=== PATIENT | female | born 1975 | race Caucasian/White ===

== ENCOUNTER 2017-08-26 13:49 | Emergency (ER) | payer MEDICAID ==
--- NOTE | 2017-08-26 15:47 | ED Physician Chart ---
ED Chief Complaint/HPI - Patient Information Date Seen:: 08/26/17 Time Seen:: 15:42 Chief Complaint:: Abdominal pain History of Present Illness:: 41 yo female had epigastric abdominal pain for 3 days worsening for 1 day, no N/ V, diarrhea or radiation. Bending forward and cough would worsen the pain. The pain was constant, 7/10, no fever. Patient had appendectomy before. She noticed abdominal distention today. She had BM this morning. Allergies:: Allergies Allergy/AdvReac Type Severity Reaction Status Date / Time azithromycin Allergy Verified 10/02/15 16:29 Vitals:: Vital Signs - 8 hr 08/26/17 15:00 Temp 98.4 F HR 82 RR 20 BP 111/67 ED Review of Systems - Review of Systems General/Constitutional: No fever Skin: No bruising Head: No headache Eyes: No pain ENT: No nasal drainage Neck: No neck pain Cardio Vascular: No chest pain Pulmonary: No SOB GI: No nausea, No vomiting, No diarrhea, Pain, Constipation Musculoskeletal: No bone or joint pain Psychiatric: No prior psych history Neurological: No focal symptoms ED Past Medical History - Past Medical History Past Medical History: Asthma/COPD Social History: Smoker, Alcohol, Illicit Drug Use (marijuana) Surgical History: Appendectomy, other (tubal ligation) Family Medical History - Family Member Mother History Unknown: Yes Ethnicity: Living Status: Still Living Hx Family Cancer: No Hx Family Coronary Artery Disease: No Hx Family Congestive Heart Failure: No Hx Family Hypertension: No Hx Family Stroke: No Hx Family Diabetes: No Hx Family Seizures: No Hx Family Dementia: No Hx Family AIDS: No Hx Family HIV: No Hx Family COPD: No Hx Family Hepatitis: No Hx Family Psychiatric Problems: No Hx Family Tuberculosis: No ED Physical Exam - Physical Examination General/Constitutional: Awake Eyes: PERRL Skin: No ecchymosis ENMT: Nasal exam nl Neck: No nuchal rigidity Respiratory: No Wheeze/Rhonchi/Rales Cardio Vascular: RRR, No murmur, gallop, rubs, NL S1 S2 Other GI comments:: LUQ and periumbilical tenderness, abdominal distention Extremities: normal strength in all extremities Neuro/Psych: No focal deficits ED Labs/Radiology/EKG Results - Lab Results Results: Laboratory Last Values WBC 8.1 Th/cmm (4.8-10.8) 08/26/17 16:05 RBC 4.44 Mil/cmm (3.80-5.10) 08/26/17 16:05 Hgb 9.2 gm/dL (12-16) L 08/26/17 16:05 Hct 29.8 % (41.0-60) L 08/26/17 16:05 MCV 67.1 fl (81-100) L 08/26/17 16:05 MCH 20.7 pg (27.0-31.0) L 08/26/17 16:05 MCHC Differential 30.9 pg (28.0-36.0) 08/26/17 16:05 RDW 17.4 % (11.5-20.0) 08/26/17 16:05 Plt Count 378 Th/cmm (150-400) 08/26/17 16:05 MPV 7.3 fl 08/26/17 16:05 Band Neutrophils % 1 % (0-10) 08/26/17 16:05 Neutrophils (Manual) 73 % (40-80) 08/26/17 16:05 Lymphocytes 20 % (20-50) 08/26/17 16:05 Monocytes 3 % (2-10) 08/26/17 16:05 Eosinophils 3 % (0-5) 08/26/17 16:05 Basophils 0 % (0-3) 08/26/17 16:05 PT 8.9 SECONDS (9.5-11.5) L 08/26/17 16:05 INR 0.87 (0.5-1.4) 08/26/17 16:05 PTT (Actin FS) 22.3 SECONDS (26.0-38.0) L 08/26/17 16:05 Sodium 138 mEq/L (136-145) 08/26/17 16:05 Potassium 3.7 mEq/L (3.5-5.1) 08/26/17 16:05 Chloride 109 mEq/L (98-107) H 08/26/17 16:05 Carbon Dioxide 22.6 mEq/L (21.0-31.0) 08/26/17 16:05 Anion Gap 10.1 (7.0-16.0) 08/26/17 16:05 BUN 20 mg/dL (7-25) 08/26/17 16:05 Creatinine 0.7 mg/dL (0.6-1.2) 08/26/17 16:05 Est GFR ( Amer) > 60.0 ml/min (>90) 08/26/17 16:05 Est GFR (Non-Af Amer) > 60.0 ml/min 08/26/17 16:05 BUN/Creatinine Ratio 28.6 08/26/17 16:05 Glucose 106 mg/dL (70-105) H 08/26/17 16:05 Calcium 8.6 mg/dL (8.6-10.3) 08/26/17 16:05 Total Bilirubin 0.2 mg/dL (0.3-1.0) L 08/26/17 16:05 AST 13 U/L (13-39) 08/26/17 16:05 ALT 14 U/L (7-52) 08/26/17 16:05 Alkaline Phosphatase 73 U/L (34-104) 08/26/17 16:05 Total Protein 6.7 gm/dL (6.0-8.3) 08/26/17 16:05 Albumin 3.9 gm/dL (3.7-5.3) 08/26/17 16:05 Globulin 2.8 gm/dL 08/26/17 16:05 Albumin/Globulin Ratio 1.4 (1.0-1.8) 08/26/17 16:05 Amylase 30 U/L (29-103) 08/26/17 16:05 Lipase 19 U/L (11-82) 08/26/17 16:05 Urine Source RANDOM 08/26/17 16:05 Urine Color YELLOW 08/26/17 16:05 Urine Clarity HAZY (CLEAR) 08/26/17 16:05 Urine pH 5.5 (4.6 - 8.0) 08/26/17 16:05 Ur Specific [place] >= 1.030 (1.005-1.030) 08/26/17 16:05 Urine Protein NEGATIVE mg/dL (NEGATIVE) 08/26/17 16:05 Urine Glucose (UA) NEGATIVE mg/dL (NEGATIVE) 08/26/17 16:05 Urine Ketones NEGATIVE mg/dL (NEGATIVE) 08/26/17 16:05 Urine Blood NEGATIVE (NEGATIVE) 08/26/17 16:05 Urine Nitrate NEGATIVE (NEGATIVE) 08/26/17 16:05 Urine Bilirubin NEGATIVE (NEGATIVE) 08/26/17 16:05 Urine Urobilinogen 0.2 E.U./dL (0.2 - 1.0) 08/26/17 16:05 Ur Leukocyte Esterase NEGATIVE (NEGATIVE) 08/26/17 16:05 Urine RBC 0-2 /hpf (0-5) 08/26/17 16:05 Urine WBC 0-2 /hpf (0-5) 08/26/17 16:05 Ur Epithelial Cells MANY /lpf (FEW) 08/26/17 16:05 Urine Bacteria FEW /hpf (NONE SEEN) 08/26/17 16:05 Urine Mucus MANY /lpf (FEW) 08/26/17 16:05 Urine Test NEGATIVE 08/26/17 16:05 Urine Opiates Screen NEGATIVE (NEGATIVE) 08/26/17 16:05 Urine Methadone Screen NEGATIVE (NEGATIVE) 08/26/17 16:05 Ur Barbiturates Screen NEGATIVE (NEGATIVE) 08/26/17 16:05 Ur Tricyclics Screen NEGATIVE (NEGATIVE) 08/26/17 16:05 Ur Phencyclidine Scrn NEGATIVE (NEGATIVE) 08/26/17 16:05 Amphetamines Screen POSITIVE (NEGATIVE) H 08/26/17 16:05 U Methamphetamines Scrn POSITIVE (NEGATIVE) H 08/26/17 16:05 U Benzodiazepines Scrn NEGATIVE (NEGATIVE) 08/26/17 16:05 U Cocaine Metab Screen NEGATIVE (NEGATIVE) 08/26/17 16:05 U Cannabinoids Screen POSITIVE (NEGATIVE) H 08/26/17 16:05 - Radiology Results Results: CT abdomen: possible umbilical hernia, fecal impaction ED Assessment - Assessment General Assessment: Abdominal pain Possible umbilical hernia Fecal impaction Microcytic anemia Assessment/Comments:: CBC, CMP, UA amylase, lipase PT/PTT CT abdomen without contrast General surgery consult Dr. Reddy ED Septic Shock - . Is Septic Shock (SBP<90, OR Lactate>4 mmol\L) present?: No - <6hrs of presentation: Vital Signs: Vital Signs - 8 hr 08/26/17 15:00 Temp 98.4 F HR 82 RR 20 BP 111/67 ED Reassessment (Disposition) - Reassessment Reassessment:: Dr. Romero assumed care at 19:00
[2017-08-26 16:13] LABS: URINE MICROSCOPIC INDICATED? YES; URINE SOURCE RANDOM
[2017-08-26 16:18] LABS: HEMATOCRIT 29.8 % (41.0-60); HEMOGLOBIN 9.2 gm/dL (12-16); MEAN CORPUSCULAR HEMOGLOBIN 20.7 pg (27.0-31.0); MEAN CORPUSCULAR HGB CONC 30.9 pg (28.0-36.0); MEAN PLATELET VOLUME 7.3 fl; PLATELET COUNT 378 Th/cmm (150-400); RED BLOOD COUNT 4.44 Mil/cmm (3.80-5.10); RED CELL DISTRIBUTION WIDTH 17.4 % (11.5-20.0); URINE BILIRUBIN NEGATIVE (NEGATIVE); URINE BLOOD NEGATIVE (NEGATIVE); URINE GLUCOSE (UA) NEGATIVE (NEGATIVE); URINE KETONE NEGATIVE (NEGATIVE); URINE LEUKOCYTE ESTERASE NEGATIVE (NEGATIVE); URINE NITRATE NEGATIVE (NEGATIVE); URINE PH 5.5 (4.6 - 8.0); URINE PROTEIN NEGATIVE (NEGATIVE); URINE UROBILINOGEN 0.2 E.U./dL (0.2 - 1.0); WHITE BLOOD COUNT 8.1 Th/cmm (4.8-10.8)
[2017-08-26 16:23] LABS: MEAN CELL VOLUME 67.1 fl (81-100)
[2017-08-26 16:24] LABS: MANUAL DIFF REQUIRED? YES
[2017-08-26 16:30] LABS: URINE CLARITY HAZY (CLEAR); URINE COLOR YELLOW
[2017-08-26 16:31] LABS: URINE BACTERIA FEW /hpf (NONE SEEN); URINE EPITHELIAL CELLS MANY /lpf (FEW); URINE RBC 0-2 /hpf (0-5); URINE WBC 0-2 /hpf (0-5)
[2017-08-26 16:40] LABS: ALB/GLOB RATIO 1.4 (1.0-1.8); ALBUMIN 3.9 gm/dL (3.7-5.3); ALKALINE PHOSPHATASE 73 U/L (34-104); AMYLASE SERUM 30 U/L (29-103); ANION GAP 10.1 (7.0-16.0); BILIRUBIN,TOTAL 0.2 mg/dL (0.3-1.0); BUN - UREA NITROGEN 20 mg/dL (7-25); CALCIUM SERUM 8.6 mg/dL (8.6-10.3); CARBON DIOXIDE 22.6 mEq/L (21.0-31.0); CHLORIDE 109 mEq/L (98-107); CREATININE - SERUM 0.7 mg/dL (0.6-1.2); GFR AFRICAN-AMERICAN > 60.0 ml/min (>90); GFR NON AFRICAN-AMERICAN > 60.0 ml/min; GLUCOSE 106 mg/dL (70-105); LIPASE 19 U/L (11-82); POTASSIUM SERUM 3.7 mEq/L (3.5-5.1); SGOT 13 U/L (13-39); SGPT/ALT 14 U/L (7-52); SODIUM SERUM 138 mEq/L (136-145); TOTAL PROTEIN,SERUM 6.7 gm/dL (6.0-8.3)
[2017-08-26 16:51] LABS: BAND NEUTROPHILE 1 % (0-10); BASOPHIL 0 % (0-3); EOSINOPHIL 3 % (0-5); LYMPHOCYTE 20 % (20-50); MONOCYTE 3 % (2-10); NEUTROPHILS 73 % (40-80); TOTAL CELLS COUNTED 100
[2017-08-26 18:57] LABS: INR 0.87 (0.5-1.4); PROTHROMBIN TIME (TEST) 8.9 SECONDS (9.5-11.5)
--- NOTE | 2017-08-26 20:57 | Consultation ---
DATE OF CONSULTATION: 08/26/2017 SURGICAL CONSULTATION REFERRING PHYSICIAN: Dr. Carreno, ER physician. REASON FOR CONSULTATION: Abdominal pain. Thank you for referring this patient to me. HISTORY OF PRESENT ILLNESS: This is a 41-year-old female with 4 children, the youngest being a 10 and 8. She claims been having abdominal pain with nausea, but no vomiting. She claims she has bowel movements. LABORATORY STUDIES: The CBC and chemistry are within normal limits. PHYSICAL EXAMINATION: ABDOMEN: Moderately tender all over with no rebound. Peristalsis is normal. DIAGNOSTIC DATA: CT scan of the abdomen shows some edema of the transverse colon. There is a question of the umbilical hernia, but examination of this region does not reveal any specific tenderness or hernia protrusion. There is stools with impaction in the lower sigmoid and rectum. The patient admits to drinking at least 2 total cans of beer per day. She smokes marijuana and uses speed as well and cigarettes she smokes as well. IMPRESSION: 1. Abdominal pain, etiology may be related to colitis and/or impacted feces. 2. History of amphetamine and marijuana abuse. PLAN: Will need further GI evaluation. At this point, there is no specific indication for any surgical intervention. Drug screen will be done. JOB# [id number]
[2017-08-26 22:09] LABS: AMPHETAMINE URINE POSITIVE (NEGATIVE); BARBITURATES URINE NEGATIVE (NEGATIVE); COCAINE METABOLITE QUAL URINE NEGATIVE (NEGATIVE); METHADONE URINE NEGATIVE (NEGATIVE); METHAMPHETAMINES QUAL URINE POSITIVE (NEGATIVE); OPIATES (MORPHINE) QUAL. URINE NEGATIVE (NEGATIVE); PHENCYCLIDINE (PCP) URINE NEGATIVE (NEGATIVE); TRICYCLICS (TCA) QUAL. URINE NEGATIVE (NEGATIVE)
[2017-08-26 22:10] LABS: BENZODIAZEPINES QUAL URINE NEGATIVE (NEGATIVE); CANNABINOID THC POSITIVE (NEGATIVE)
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
== END 2017-08-26 22:44 | disposition home or self-care (01) ==
LOC: ER 13:49
DX: K56.41 Fecal impaction (principal); D50.9 Iron deficiency anemia, unspecified; R10.13 Epigastric pain; R11.0 Nausea; F12.90 Cannabis use, unspecified, uncomplicated; J44.9 Chronic obstructive pulmonary disease, unspecified; J45.909 Unspecified asthma, uncomplicated; F17.200 Nicotine dependence, unspecified, uncomplicated; Z90.49 Acquired absence of other specified parts of digestive tract
CPT/HCPCS: 36415-UA; 80053-TC; 80307; 81001-TC; 81025-TC; 82150-TC; 83690-TC; 85007-TC; 85025-TC; 85027-TC; 85610-TC

== ENCOUNTER 2018-05-30 19:54 | Emergency (ER) | payer BC, MEDICAID ==
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
[2018-05-30 21:28] LABS: URINE SOURCE CLEAN C
[2018-05-30] MEDS ORDERED: IOHEXOL 300mgI/mL 100 ML VIAL ONE (21:28)
[2018-05-30 21:29] LABS: HEMATOCRIT 28.2 % (41.0-60); HEMOGLOBIN 8.5 gm/dL (12-16); MEAN CORPUSCULAR HEMOGLOBIN 18.7 pg (27.0-31.0); MEAN PLATELET VOLUME 7.1 fl; PLATELET COUNT 481 Th/cmm (150-400); RED BLOOD COUNT 4.52 Mil/cmm (3.80-5.10); RED CELL DISTRIBUTION WIDTH 18.3 % (11.5-20.0); WHITE BLOOD COUNT 6.9 Th/cmm (4.8-10.8)
[2018-05-30 21:32] LABS: URINE BILIRUBIN NEGATIVE (NEGATIVE); URINE BLOOD NEGATIVE (NEGATIVE); URINE GLUCOSE (UA) NEGATIVE (NEGATIVE); URINE KETONE NEGATIVE (NEGATIVE); URINE LEUKOCYTE ESTERASE NEGATIVE (NEGATIVE); URINE NITRATE NEGATIVE (NEGATIVE); URINE PROTEIN NEGATIVE (NEGATIVE)
[2018-05-30 21:36] LABS: ALB/GLOB RATIO 1.5 (1.0-1.8); ALBUMIN 3.7 gm/dL (3.7-5.3); ALKALINE PHOSPHATASE 66 U/L (34-104); ANION GAP 10.9 (7.0-16.0); BILIRUBIN,TOTAL 0.2 mg/dL (0.3-1.0); BUN - UREA NITROGEN 16 mg/dL (7-25); CARBON DIOXIDE 25.9 mEq/L (21.0-31.0); CHLORIDE 105 mEq/L (98-107); CREATININE - SERUM 0.6 mg/dL (0.6-1.2); GFR AFRICAN-AMERICAN > 60.0 ml/min (>90); GFR NON AFRICAN-AMERICAN > 60.0 ml/min; GLUCOSE 95 mg/dL (70-105); LIPASE 18 U/L (11-82); POTASSIUM SERUM 3.8 mEq/L (3.5-5.1); SGOT 13 U/L (13-39); SGPT/ALT 12 U/L (7-52); SODIUM SERUM 138 mEq/L (136-145); TOTAL PROTEIN,SERUM 6.2 gm/dL (6.0-8.3)
[2018-05-30 22:19] LABS: AMPHETAMINE URINE POSITIVE (NEGATIVE); BARBITURATES URINE NEGATIVE (NEGATIVE); BENZODIAZEPINES QUAL URINE NEGATIVE (NEGATIVE); CANNABINOID THC POSITIVE (NEGATIVE); COCAINE METABOLITE QUAL URINE NEGATIVE (NEGATIVE); METHADONE URINE NEGATIVE (NEGATIVE); METHAMPHETAMINES QUAL URINE NEGATIVE (NEGATIVE); OPIATES (MORPHINE) QUAL. URINE NEGATIVE (NEGATIVE); PHENCYCLIDINE (PCP) URINE NEGATIVE (NEGATIVE); TRICYCLICS (TCA) QUAL. URINE NEGATIVE (NEGATIVE)
[2018-05-30 22:25] LABS: URINE COLOR YELLOW
[2018-05-30 22:26] LABS: URINE CLARITY HAZY (CLEAR); URINE MICROSCOPIC INDICATED? YES
[2018-05-30 22:27] LABS: URINE BACTERIA FEW /hpf (NONE SEEN); URINE EPITHELIAL CELLS FEW /lpf (FEW); URINE RBC NONE SEEN /hpf (0-5)
[2018-05-30 22:38] LABS: BAND NEUTROPHILE 0 % (0-10); LYMPHOCYTE 24 % (20-50); MONOCYTE 5 % (2-10); NEUTROPHILS 65 % (40-80)
[2018-05-30 22:39] LABS: BASOPHIL 0 % (0-3)
[2018-05-30 22:40] LABS: EOSINOPHIL 6 % (0-5)
[2018-05-30 22:49] LABS: MEAN CELL VOLUME 62.5 fl (81-100)
[2018-05-30] MEDS ORDERED: Sodium Chloride 0.9% 1,000 ML IV ONE (22:55)
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
== END 2018-05-31 00:13 | disposition home or self-care (01) ==
LOC: ER 19:54
DX: E86.0 Dehydration (principal); D50.9 Iron deficiency anemia, unspecified; R10.12 Left upper quadrant pain; F19.10 Other psychoactive substance abuse, uncomplicated; J44.9 Chronic obstructive pulmonary disease, unspecified; F17.200 Nicotine dependence, unspecified, uncomplicated; Z88.1 Allergy status to other antibiotic agents; Z90.49 Acquired absence of other specified parts of digestive tract; Z98.51 Tubal ligation status
CPT/HCPCS: 99284; 96374; 71260; 74177; 36415; 80307; 85007; 85025; 81001; 81025; 83690; 80053; C9113; J7030; Q9967; Z7502; Z7610